=== PATIENT | female | born 1945 | race Hispanic/Latino ===

== ENCOUNTER 2020-02-04 00:50 | Inpatient (IN) | payer MEDICARE ==
[~2020-02-04] VITALS: Ht 144.8 cm; Wt 101.2 kg
[2020-02-04] VITALS (7 sets, daily range): BP systolic 125–154; BP diastolic 51–77
[2020-02-04] MEDS ORDERED: ONDANSETRON HCL INJ 2MG/ML 2ML 2 MG/ML VIAL IV STA (00:59)
--- OUTSIDE RECORDS SUMMARY | 2020-02-04 01:23 | XMS REPORT | Clinical Summary ---
Author Author [facility] Organization [facility] Address Unknown Phone Unavailable Care Team Providers Care Blackjack Dealer Name Role Phone Jarvis English MD PCP Allergies Comments Active Allergy Reactions Severity Noted Date Ibuprofen Itching High 04/18/2017 Penicillins Swelling High 04/18/2017 Hydrocodone-Acetaminophen Swelling High 03/31 Vein swelling Zonisamide Other (See High 04/18/2017 Comments) Medications End Date Status Medication Sig Dispensed Refills Start Date Active traMADol (ULTRAM) 50 mg TAKE 1 TABLET 0 tablet BY MOUTH 7 EVERY 6 HOURS NEEDED FOR PAIN DIRECTED BY DOCTOR Active pantoprazole (PROTONIX) Take 40 mg by 3 40 MG EC tablet mouth once 7 daily. Active oxybutynin XL Take 10 mg by 1 (DITROPAN-XL) 10 MG 24 hr mouth once 7 tablet daily. Active losartan (COZAAR) 50 MG Take 50 mg by 3 tablet mouth once 7 daily. Active metoprolol tartrate Take 25 mg by 3 (LOPRESSOR) 25 mg tablet mouth 2 (two) 7 times a day. Active levothyroxine (SYNTHROID, Take 25 mcg 3 LEVOXYL) 25 mcg tablet by mouth once 7 daily. Active isosorbide mononitrate TAKE 1 TABLET 1 01 (IMDUR) 30 MG 24 hr BY MOUTH ONCE 7 tablet A DAY (IN THE MORNING) FOR 90 DAYS Active furosemide (LASIX) 20 mg Take 20 mg by 3 03/31 tablet mouth once 7 daily. Active clopidogrel (PLAVIX) 75 Take 75 mg by 3 mg tablet mouth once 7 daily. Active DOCOSAHEXANOIC ACID/EPA Take by 0 (FISH OIL ORAL) mouth. Active CALCIUM ACETATE ORAL Take by 0 mouth. Active aspirin (ECOTRIN) 81 MG Take 81 mg by 0 enteric coated tablet mouth daily. Active rosuvastatin (CRESTOR) 20 Take 20 mg by 0 MG tablet mouth daily. Active Problems Not on file Family History Medical History Relation Name Comments Lung disease Father Heart disease Mother Heart failure Mother Kidney failure Sister Relation Name Status Comments Brother Alive Brother Alive Brother Alive Father Mother Sister Alive Social History Date Tobacco Use Types Packs/Day Years Used Never Smoker Smokeless Tobacco: Never Used Drinks/Week oz/Week Comments Alcohol Use No Sex Assigned at Date Recorded Not on file Industry Job Start Date Occupation Not on file Not on file Not on file Travel End Travel History Travel Start No recent travel history available. Last Filed Vital Signs Not on file Plan of Treatment Health Maintenance Due Date Last Done Comments COLONOSCOPY SCREENING 09/25/1993 SHINGLES VACCINES (#1) 09/25/1993 65+ PNEUMOCOCCAL VACCINE 09/25/2008 (1 of 2 - PCV13) INFLUENZA VACCINE 02/28/2020 Results Not on fileafter 02/03/2019 Insurance Type Payer Benefit Subscriber ID Effective Phone Address Plan / Dates Group HMO [employer] CIGNA xxxxxxxxxxx 2016-P [employer] [facility] AD[facility] Guarantor Name Account Relation to Date of Phone Ирина grimes Address Type Patient Marisela Klein Personal/F Self 1945 [id number] (Home) [place] [address] Advance Directives For more information, please contact: [phone] 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
--- OUTSIDE RECORDS SUMMARY | 2020-02-04 01:23 | XMS REPORT | Continuity of Care Document ---
Author Author [facility] Organization [facility] Address [address] [place] [address] Phone Unavailable Care Team Providers Care Certified Coding Specialist Name Role Phone Amador GOLDBERG, MichelleYeseniaRobina PCP Problems This patient has no known problems. Allergies, Adverse Reactions, Alerts Allergy Name Allergy Type Status Severity Reaction(s) Onset Date Inacti ve Date Treating Clinician Comments Source Ibuprofen Propensity to adverse reactions to drug Active Itching 2017-04-18 00:00:00 [place] [facility] Penicillins Propensity to adverse reactions to drug Active Swelling 2017-04-18 00:00:00 [place] [facility] Hydrocodone-Acetaminophen Propensity to adverse reactions to drug A ctive Swelling 2017-04-18 00:00:00 [place] Zonisamide Propensity to adverse reactions to drug Active Other (See Comments) 2017-04-18 00:00:00 Vein swelling [place] [facility] Family History Family Member Diagnosis Comments Start Date Stop Date Source Natural father Lung disease [place] [facility] Natural mother Heart disease [place] [facility] Natural mother Heart failure [place] [facility] Natural sister Kidney failure [place] Social History Social Habit Start Date Stop Date Quantity Comments Source Sex Assigned At Dheeraj cheung [place] Alcohol intake 2017-04-20 00:00:00 2017-04-20 00:00:00 Current non-drinker of alcohol (finding) [place] [facility] Smoking Status Start Date Stop Date Source Never smoker [place] roman Medications Ordered Medication Name Filled Medication Name Start Date Stop Da te Current Medication? Ordering Clinician Indication Dosage Frequency Signature (SIG) Comments Components Source DOCOSAHEXANOIC ACID/EPA (FISH OIL ORAL) 2017-04-18 10:11:31 Yes Take by mouth. [place] CALCIUM ACETATE ORAL 2017-04-18 10:11:31 Yes Take by mouth. [place] aspirin (ECOTRIN) 81 MG enteric coated tablet 2017-04-18 10:11:3 1 Yes 81mg QD Take 81 mg by mouth daily. [place]au Torres rosuvastatin (CRESTOR) 20 MG tablet 2017-04-18 10:11:31 Yes 20mg QD Take 20 mg by mouth daily. [place] pantoprazole (PROTONIX) 40 MG EC tablet 2017-04-10 00:00:00 Yes 40mg QD Take 40 mg by mouth once daily. [place] losartan (COZAAR) 50 MG tablet 2017-04-02 00:00:00 Yes 50mg QD Take 50 mg by mouth once daily. [place] roman metoprolol tartrate (LOPRESSOR) 25 mg tablet 2017-04-02 00:00:00 Yes 25mg Q.5D Take 25 mg by mouth 2 (two) times a day. [place] [facility] furosemide (LASIX) 20 mg tablet 2017-03-31 00:00:00 Yes 20mg QD Take 20 mg by mouth once daily. [place] roman isosorbide mononitrate (IMDUR) 30 MG 24 hr tablet 2017-03-19 00:00:00 Yes TAKE 1 TABLET BY MOUTH ONCE A DAY (IN THE MORNI NG) FOR 90 DAYS [place] Torres clopidogrel (PLAVIX) 75 mg tablet 2017-03-04 00:00:00 Yes 75mg QD Take 75 mg by mouth once daily. [place] andrade traMADol (ULTRAM) 50 mg tablet 2017-02-22 00:00:00 Yes TAKE 1 TABLET BY MOUTH EVERY 6 HOURS NEEDED FOR PAIN DIRECTED BY DOCTOR [place] levothyroxine (SYNTHROID, LEVOXYL) 25 mcg tablet 2017-01-31 00:00:00 Yes 25ug QD Take 25 mcg by mouth once daily. [place] oxybutynin XL (DITROPAN-XL) 10 MG 24 hr tablet 2017-01-10 00:00: 00 Yes 10mg QD Take 10 mg by mouth once daily. [place] Torres Procedures This patient has no known procedures. Plan of Care Planned Activity Planned Date Details Comments Source Future Scheduled Test 2020-02-28 00:00:00 INFLUENZA VACCINE [code = INFLUENZA VACCINE] [place] [facility] Future Scheduled Test 2008-09-25 00:00:00 65+ PNEUMOCOCCAL V ACCINE (1 of 2 - PCV13) [code = 65+ PNEUMOCOCCAL VACCINE (1 of 2 - PCV13)] [place] [facility] Future Scheduled Test 1993-09-25 00:00:00 COLONOSCOPY SCREEN ING [code = COLONOSCOPY SCREENING] [facility] Future Scheduled Test 1993-09-25 00:00:00 SHINGLES VACCINES (#1) [code = SHINGLES VACCINES (#1)] [facility] Encounters Start Date/Time End Date/Time [facility] Source 2019-03-02 22:28:00 2019-03-02 22:28:00 Emergency E [id number] [facility] Results This patient has no known results.
[2020-02-04 01:25] LABS: BASOPHILS # (AUTO) 0.1 (0.0-0.1); BASOPHILS % 0.5 % (0.0-1.0); EOSINOPHILS # (AUTO) 0.4 (0.0-0.4); EOSINOPHILS % 2.7 % (0.0-6.0); HEMATOCRIT 34.1 % (34.2-44.1); HEMOGLOBIN 10.9 g/dL (12.0-16.0); LYMPHOCYTES # (AUTO) 2.4 (1.0-3.2); LYMPHOCYTES % 18.4 % (18.0-39.1); MEAN CORPUSCULAR HEMOGLOBIN 26.8 pg (28-32); MONOCYTES # (AUTO) 1.2 (0.2-0.8); MONOCYTES % 9.2 % (4.4-11.3); NEUTROPHILS % 67.5 % (38.7-80.0); PLATELET COUNT 369 x10e3/uL (140-360); RED BLOOD COUNT 4.06 x10e6/uL (3.6-5.1); RED CELL DISTRIBUTION WIDTH 18.7 % (11.7-14.4)
--- NOTE | 2020-02-04 01:41 | Emergency Department Note ---
History of Present Illnes History of Present Illness Chief Complaint: General Medicine Complaints History of Present Illness This is a 74 year old female PRESENTS TO ED WITH NAUSEA X11 HRS, PT DENIES ANY VOMITING OR DIARRHEA; PT ALSO WITH MILD GENERALIZED ABD PAIN, PT ALSO REPORTS OUT OF HER TRAMADOL FOR 2 DAYS AND NOT DUE FOR A REFILL UNTIL 02/09/20. . Historian: Patient, Family Member Arrival Mode: Car Onset (how long ago): hour(s) (11) Location: ABD Quality: NAUSEA, ABD PAIN Radiation: Reports non-radiation Severity: moderate Onset quality: gradual Duration (how long): hour(s) (11) Timing of current episode: constant Progression: worsening Context: Denies recent illness, Denies recent surgery, Denies trauma/injury Relieving factors: none Exacerbating factors: none Associated symptoms: Reports headaches, Reports nausea/vomiting (NO VOMITING) Treatments prior to arrival: none Past Medical/Family History Physician Review I have reviewed the patient's past medical and family history. Any updates have been documented here. Past Medical History Recent Fever: No Clinical Suspicion of Infectio: No New/Unexplained Change in Ment: No Past Medical History: Hypertension, CHF, CVA, CAD, Liver Disease, Hyperlipedemia, Chronic Back Pain Past Surgical History: Cholecysctectomy, Hysterectomy, Tubal Ligation Social History Smoking Cessation: Never Smoker Counseling Performed: No Alcohol Use: None Any Illegal Drug Use: No Family History Family history of heart diseas: No Other Any Pre-Existing Lines (PICC,: No Review of Systems Review of Systems Constitutional: Reports no symptoms EENTM: Reports no symptoms Cardiovascular: Reports no symptoms Respiratory: Reports no symptoms Gastrointestinal: Reports as per HPI Genitourinary: Reports no symptoms Musculoskeletal: Reports no symptoms Integumentary: Reports no symptoms Neurological: Reports no symptoms Psychological: Reports no symptoms Endocrine: Reports no symptoms Hematological/Lymphatic: Reports no symptoms Physical Exam Related Data Allergies: Coded Allergies: Penicillins (Verified Allergy, Intermediate, 02/04/20) acetaminophen (Verified Allergy, Intermediate, 02/04/20) hydrocodone (Verified Allergy, Intermediate, 02/04/20) zonisamide (Verified Allergy, Intermediate, 02/04/20) Triage Vital Signs Vital Signs Date Time Temp Pulse Resp B/P (MAP) Pulse Ox O2 Delivery O2 Flow Rate FiO2 02/04/20 00:59 97.9 90 18 99 Room Air Vital signs reviewed: Yes Physical Exam CONSTITUTIONAL Constitutional: Present well-developed, Present well-nourished; Absent distressed HENT HENT: Present normocephalic, Present atraumatic, Present oropharynx clear/moist, Present nose normal HENT L/R: Present left ext ear normal, Present right ext ear normal EYES Eyes: Reports PERRL, Reports conjunctivae normal NECK Neck: Present ROM normal PULMONARY Pulmonary: Present effort normal, Present breath sounds normal CARDIOVASCULAR Cardiovascular: Present regular rhythm, Present heart sounds normal, Present capillary refill normal, Present normal rate GASTROINTESTINAL Abdominal: Present soft, Present bowel sounds normal, Present tender (MILD GENERALIZED TENDERNESS) GENITOURINARY Genitourinary: Present exam deferred SKIN Skin: Present warm, Present dry MUSCULOSKELETAL Musculoskeletal: Present ROM normal, Present edema (2+ PITTTING EDEMA TO BILATERAL LOWER EXTREMITIES) NEUROLOGICAL Neurological: Present alert, Present oriented x 3, Present no gross motor or sensory deficits PSYCHOLOGICAL Psychological: Present mood/affect normal, Present judgement normal Results Laboratory Result Diagram: 02/04/20 0111 Laboratory Laboratory Tests Test 02/04/20 02:05 02/04/20 01:11 Urine Color Yellow (YELLOW) Urine Clarity Cloudy (CLEAR) Urine pH 5 (5 - 7) Urine Specific [place] 1.015 (1.010-1.025) Urine Protein Negative (NEGATIVE) Urine Glucose (UA) Negative (NEGATIVE) Urine Ketones Negative (NEGATIVE) Urine Blood 1+ (NEGATIVE) Urine Nitrite Negative (NEGATIVE) Urine Bilirubin Negative (NEGATIVE) Urine Urobilinogen 0.2 mg/dL (0.2 - 1) Urine Leukocyte Esterase 2+ (NEGATIVE) Urine RBC 6-10 /HPF (0-5) Urine WBC >50 /HPF (0-5) Urine Epithelial Cells Few /LPF (NONE) Urine Transitional Epithelial Cells Few (NONE) Urine Renal Epithelial Cells Few (NONE) Urine Bacteria Moderate /HPF (NONE) White Blood Count 13.25 x10e3/uL (4.8-10.8) Red Blood Count 4.06 x10e6/uL (3.6-5.1) Hemoglobin 10.9 g/dL (12.0-16.0) Hematocrit 34.1 % (34.2-44.1) Mean Corpuscular Volume 84.0 fL (81-99) Mean Corpuscular Hemoglobin 26.8 pg (28-32) Mean Corpuscular Hemoglobin Concent 32.0 g/dL (31-35) Red Cell Distribution Width 18.7 % (11.7-14.4) Platelet Count 369 x10e3/uL (140-360) Neutrophils (%) (Auto) 67.5 % (38.7-80.0) Lymphocytes (%) (Auto) 18.4 % (18.0-39.1) Monocytes (%) (Auto) 9.2 % (4.4-11.3) Eosinophils (%) (Auto) 2.7 % (0.0-6.0) Basophils (%) (Auto) 0.5 % (0.0-1.0) Neutrophils # (Auto) 9.0 (2.1-6.9) Lymphocytes # (Auto) 2.4 (1.0-3.2) Monocytes # (Auto) 1.2 (0.2-0.8) Eosinophils # (Auto) 0.4 (0.0-0.4) Basophils # (Auto) 0.1 (0.0-0.1) Absolute Immature Granulocyte (auto 0.22 x10e3/uL (0-0.1) Sodium Level 137 mmol/L (136-145) Potassium Level 4.7 mmol/L (3.5-5.1) Chloride Level 102 mmol/L (98-107) Carbon Dioxide Level 19 mmol/L (22-29) Anion Gap 20.7 mmol/L (8-16) Blood Urea Nitrogen 47 mg/dL (7-26) Creatinine 1.71 mg/dL (0.57-1.11) Estimat Glomerular Filtration Rate 29 ML/MIN (60-) BUN/Creatinine Ratio 27 (6-25) Glucose Level 99 mg/dL (74-118) Calcium Level 9.3 mg/dL (8.4-10.2) Total Bilirubin 0.4 mg/dL (0.2-1.2) Aspartate Amino Transf (AST/SGOT) 41 IU/L (5-34) Alanine Aminotransferase (ALT/SGPT) 27 IU/L (0-55) Alkaline Phosphatase 112 IU/L (40-150) Creatine Kinase 1331 IU/L (29-168) Creatine Kinase MB 19.90 ng/mL (0-5.0) Troponin I 0.021 ng/mL (0-0.300) Total Protein 8.1 g/dL (6.5-8.1) Albumin 4.7 g/dL (3.5-5.0) Globulin 3.4 g/dL (2.3-3.5) Albumin/Globulin Ratio 1.4 (0.8-2.0) Laboratory Tests Test 02/04/20 01:11 White Blood Count 13.25 x10e3/uL (4.8-10.8) Red Blood Count 4.06 x10e6/uL (3.6-5.1) Hemoglobin 10.9 g/dL (12.0-16.0) Hematocrit 34.1 % (34.2-44.1) Mean Corpuscular Volume 84.0 fL (81-99) Mean Corpuscular Hemoglobin 26.8 pg (28-32) Mean Corpuscular Hemoglobin Concent 32.0 g/dL (31-35) Red Cell Distribution Width 18.7 % (11.7-14.4) Platelet Count 369 x10e3/uL (140-360) Neutrophils (%) (Auto) 67.5 % (38.7-80.0) Lymphocytes (%) (Auto) 18.4 % (18.0-39.1) Monocytes (%) (Auto) 9.2 % (4.4-11.3) Eosinophils (%) (Auto) 2.7 % (0.0-6.0) Basophils (%) (Auto) 0.5 % (0.0-1.0) Neutrophils # (Auto) 9.0 (2.1-6.9) Lymphocytes # (Auto) 2.4 (1.0-3.2) Monocytes # (Auto) 1.2 (0.2-0.8) Eosinophils # (Auto) 0.4 (0.0-0.4) Basophils # (Auto) 0.1 (0.0-0.1) Absolute Immature Granulocyte (auto 0.22 x10e3/uL (0-0.1) Lab results reviewed: Yes Imaging Imaging results reviewed: Yes Impressions EXAM: CT Abdomen and Pelvis WITHOUT contrast INDICATION: ^ABD PAIN, NAUSEA ^Y COMPARISON: None. TECHNIQUE: Abdomen and pelvis were scanned utilizing a multidetector helical scanner from the lung base to the pubic symphysis without administration of IV contrast. Absence of intravenous contrast decreases sensitivity for detection of focal lesions and vascular pathology. Coronal and sagittal reformations were obtained. Routine protocol was performed. IV CONTRAST: None ORAL CONTRAST: Gastroview COMPLICATIONS: None RADIATION DOSE: Total DLP: 769.47 mGy*cm Estimated effective dose: (DLP x 0.015 x size factor) mSv CTDIvol has been reviewed. It is below the limits set by the Radiation Protocol Committee (RPC). FINDINGS: LINES and TUBES: None. LOWER THORAX: Unremarkable HEPATOBILIARY: Ill-defined right hepatic lobe hypodensity (series 2, image 17) cannot be characterized on this unenhanced study. Hepatic steatosis. No biliary ductal dilation. GALLBLADDER: Surgically absent. SPLEEN: No splenomegaly. PANCREAS: No focal masses or ductal dilatation. ADRENALS: No adrenal nodules KIDNEYS/URETERS: Atrophic kidneys. No hydronephrosis. Limited for evaluation of renal parenchyma without intravenous contrast. 1.8 cm right renal midpole exophytic hyperdense lesion. No stones. GI TRACT: No abnormal distention, wall thickening, or evidence of bowel obstruction. Appendix is not visualized. PELVIC ORGANS/BLADDER: Fat-containing 2.5 cm anterior uterine body lesion, could represent a lipoleiomyoma. Bladder is unremarkable. LYMPH NODES: No lymphadenopathy. VESSELS: There is mild atherosclerotic disease in the aorta and major arterial branches. 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 PERITONEUM / RETROPERITONEUM: No free air or fluid. BONES: Degenerative changes of spine. Grade 1 retrolisthesis of L5 in relation to L4. SOFT TISSUES: Unremarkable. IMPRESSION: No definite evidence of acute inflammatory process in the abdomen/pelvis, considering limitations of unenhanced study. Hepatic steatosis. Atrophic kidneys. 1.8 cm right renal midpole exophytic hyperdense lesion, could represent a hemorrhagic cyst, which can be confirmed with nonurgent renal ultrasound. 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 Signed by: Dr. Steve Miller MD on 02/04/2020 4:41 AM Dictated By: STEVE MILLER MD 0 Transcribed By: GRADY on 02/04/20440 COPY TO: ASHLEY HAYES MD~ Procedures 12 Lead ECG Interpretation ECG Interpretation : ECG: ECG 1 Mica Inspector: Interpreted by ED physician Date: Feb 04, 2020 Time: 01:31 Rate: tachycardia QRS axis: normal ST segments normal: Yes T waves normal: Yes Q waves: V1, V2 Clinical Impression: abnormal ECG Additional Comments ACCELERATED JUNCTIONAL RHYTHM Assessment & Plan Medical Decision Making MDM PT WITH NAUSEA AND ABD PAIN WHO HAS BEEN OUT OF HER TRAMADOL FOR 2 DAYS CBC, CMP, AMYLASE, LIPASE, UA, EKG, CARDIAC ENZYMES, CT ABD/PELVIS ORDERED TO EVAL FOR PANCREATITIS, UTI, ELECTROLYTE ABNORMALITY, MYOCARDIAL INFARCTION, COLITIS, BOWEL OBSTRUCTION ZOFRAN 4 MG IV ORDERED 0235 PT'S DAUGHTER REPORTS SHE HAS HAD SAME SYMPTOMS THIS WITH OPIATE WITHDRAWALS SEVERAL TIMES IN THE PAST Assessment & Plan Final Impression: (1) UTI (urinary tract infection) (2) Nausea (3) Elevated CK (4) Elevated CK-MB level (5) Opiate withdrawal Depart Disposition: ADMITTED Last Vital Signs Date Time Temp Pulse Resp B/P (MAP) Pulse Ox O2 Delivery O2 Flow Rate FiO2 02/04/20 00:59 97.9 90 18 99 Room Air Medications in the ED Ondansetron HCl 4 mg NOW STAT IV ; Start 02/04/20 at 00:59; Stop 02/04/20 at 01:18; Status DC Lorazepam 1 mg ONCE ONCE IV ; Start 02/04/20 at 01:45; Stop 02/04/20 at 01:46 ASHLEY HAYES MD Feb 04, 2020 01:41
[2020-02-04] MEDS ORDERED: LORAZEPAM INJ 2 MG/ML VIAL ONE (01:42)
[2020-02-04] MEDS ORDERED: LORAZEPAM INJ 2 MG/ML VIAL IV ONE (01:45)
[2020-02-04 01:47] LABS: ALBUMIN 4.7 g/dL (3.5-5.0); ALBUMIN/GLOBULIN RATIO 1.4 (0.8-2.0); ANION GAP 20.7 mmol/L (8-16); CALCIUM 9.3 mg/dL (8.4-10.2); CREATININE, SERUM 1.71 mg/dL (0.57-1.11); POTASSIUM 4.7 mmol/L (3.5-5.1)
[2020-02-04 02:09] LABS: CREATINE KINASE MB 19.9 ng/mL (0-5.0)
[2020-02-04] MEDS ORDERED: MORPHINE SULFATE 2 MG/ML SYR 1ML IV STA (02:09)
[2020-02-04] MEDS ORDERED: DIATRIZOATE MEGL/DIATRIZOA SOD 30 ML BTL PO ONE (02:10)
[2020-02-04] MEDS ORDERED: MORPHINE SULFATE INJ 4 MG/ML INJ 1ML ONE (02:18)
[2020-02-04] MEDS ORDERED: ONDANSETRON HCL INJ 2MG/ML 2ML 2 MG/ML VIAL ONE (02:19)
[2020-02-04] MEDS ORDERED: SODIUM CHLORIDE 0.9% 50ML 50 ML ONE (02:21)
[2020-02-04 02:50] LABS: BILIRUBIN,URINE NEGATIVE (NEGATIVE); CLARITY,URINE CLOUDY (CLEAR); COLOR,URINE YELLOW (YELLOW); KETONES,URINE NEGATIVE (NEGATIVE); LEUKOCYTE ESTERASE ,URINE 2+ (NEGATIVE); NITRITE,URINE NEGATIVE (NEGATIVE); PROTEIN,URINE DIPSTICK NEGATIVE (NEGATIVE); URINE UROBILINOGEN 0.2 mg/dL (0.2 - 1)
[2020-02-04 02:55] LABS: BACTERIA,URINE MODERATE /HPF; EPITHELIAL CELLS,URINE FEW /LPF; RENAL EPITHELIAL CELLS,URINE FEW; TRANSITIONAL EPI CELLS,URINE FEW; WBC,URINE (MAN) >50 /HPF (0-5)
[2020-02-04] MEDS: CEFTRIAXONE SOD 1 GM/NS 50 ML 50 ML IV SCH (03:50)
--- NOTE | 2020-02-04 04:44 | Diagnostic Imaging Report ---
EXAM: CT Abdomen and Pelvis WITHOUT contrast INDICATION: ^ABD PAIN, NAUSEA ^Y COMPARISON: None. TECHNIQUE: Abdomen and pelvis were scanned utilizing a multidetector helical scanner from the lung base to the pubic symphysis without administration of IV contrast. Absence of intravenous contrast decreases sensitivity for detection of focal lesions and vascular pathology. Coronal and sagittal reformations were obtained. Routine protocol was performed. IV CONTRAST: None ORAL CONTRAST: Gastroview COMPLICATIONS: None RADIATION DOSE: Total DLP: 769.47 mGy*cm Estimated effective dose: (DLP x 0.015 x size factor) mSv CTDIvol has been reviewed. It is below the limits set by the Radiation Protocol Committee (RPC). FINDINGS: LINES and TUBES: None. LOWER THORAX: Unremarkable HEPATOBILIARY: Ill-defined right hepatic lobe hypodensity (series 2, image 17) cannot be characterized on this unenhanced study. Hepatic steatosis. No biliary ductal dilation. GALLBLADDER: Surgically absent. SPLEEN: No splenomegaly. PANCREAS: No focal masses or ductal dilatation. ADRENALS: No adrenal nodules KIDNEYS/URETERS: Atrophic kidneys. No hydronephrosis. Limited for evaluation of renal parenchyma without intravenous contrast. 1.8 cm right renal midpole exophytic hyperdense lesion. No stones. GI TRACT: No abnormal distention, wall thickening, or evidence of bowel obstruction. Appendix is not visualized. PELVIC ORGANS/BLADDER: Fat-containing 2.5 cm anterior uterine body lesion, could represent a lipoleiomyoma. Bladder is unremarkable. LYMPH NODES: No lymphadenopathy. VESSELS: There is mild atherosclerotic disease in the aorta and major arterial branches. 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 PERITONEUM / RETROPERITONEUM: No free air or fluid. BONES: Degenerative changes of spine. Grade 1 retrolisthesis of L5 in relation to L4. SOFT TISSUES: Unremarkable. IMPRESSION: No definite evidence of acute inflammatory process in the abdomen/pelvis, considering limitations of unenhanced study. Hepatic steatosis. Atrophic kidneys. 1.8 cm right renal midpole exophytic hyperdense lesion, could represent a hemorrhagic cyst, which can be confirmed with nonurgent renal ultrasound. 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 Signed by: Dr. Steve Miller MD on 02/04/2020 4:41 AM
[2020-02-04] MEDS ORDERED: SODIUM CHLORIDE 0.9% 1000ML 1,000 ML IV ONE (05:30)
[2020-02-04] MEDS ORDERED: DEXTROSE 50% SYRINGE 50 ML IV PRN (05:30)
--- OUTSIDE RECORDS SUMMARY | 2020-02-04 05:41 | XMS REPORT | Clinical Summary ---
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
--- OUTSIDE RECORDS SUMMARY | 2020-02-04 05:41 | XMS REPORT | Continuity of Care Document ---
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 [...] disease [place] Torres Natural mother Heart failure Lod[place] Torres Natural sister Kidney failure [place] [facility] Social History Social Habit Start Date Stop Date Quantity Comments Source Sex Assigned At [facility] Alcohol intake 2017-04-20 00:00:00 2017-04-20 00:00:00 Current [...] PNEUMOCOCCAL VACCINE (1 of 2 - PCV13)] [place] [facility] Future Scheduled Test 1993-09-25 00:00:00 COLONOSCOPY SCREEN ING [code = COLONOSCOPY SCREENING] [place] [facility] Future Scheduled Test 1993-09-25 00:00:00 SHINGLES VACCINES (#1) [code = SHINGLES VACCINES (#1)] [place] [facility] Encounters Start Date/Time End Date/Time Encounter Type Admission Type Att[facility] Care Department Encounter ID Source 2019-03-02 22:28:00 2019-03-02 22:28:00 Emergency E [id number] [facility] Results Test Description Test Time Test Comments Results Result Comments Source CT ABDOMEN/PELVIS WO 2020-02-04 04:32:00 [place] [id number] Patient Name: ARNULFO FOSS MR #: [id number] : 1945 Age/Sex: 74/F Req #: [id number] Adm Physician: Ordered by: ASHLEY HAYES MD Report #: [id number] Location: ER Room/Bed: Procedure: [id number] CT/CT ABDOMEN/PELVIS WO Exam Date: Exam Time: REPORT STATUS: Signed EXAM: CT Abdomen and Pelvis WITHOUT contrast INDICATION: ABD PAIN, NAUSEA Y COMPARISON: None. TECHNIQUE: Abdomen and pelvis were scanned utilizing a multidetector helical scanner from the lung base to the pubic symphysis without administration of IV contrast. Absence of intravenous contrast decreases sensitivity for detection of focal lesions and vascular pathology. Coronal and sagittal reformations were obtained. Routine protocol was performed. IV CONTRAST: None ORAL CONTRAST: Gastroview COMPLICATIONS: None RADIATION DOSE: Total DLP: 769.47 mGy*cm Estimated effective dose: (DLP x 0.015 x size factor) mSv CTDIvol has been reviewed. It is below the limits set by the Radiation Protocol Committee (RPC). FINDINGS: LINES and TUBES: None. LOWER THORAX: Unremarkable HEPATOBILIARY: Ill-defined right hepatic lobe hypodensity (series 2, image 17) cannot be characterized on this unenhanced study. Hepatic steatosis. No biliary ductal dilation. GALLBLADDER: Surgically absent. SPLEEN: No splenomegaly. PANCREAS: No focal masses or ductal dilatation. ADRENALS: No adrenal nodules KIDNEYS/URETERS: Atrophic kidneys. No hydronephrosis. Limited for evaluation of renal parenchyma without intravenous contrast. 1.8 cm right renal midpole exophytic hyperdense lesion. No stones. GI TRACT: No abnormal distention, wall thickening, or evidence of bowel obstruction. Appendix is not visualized. PELVIC ORGANS/BLADDER: Fat-containing 2.5 cm anterior uterine body lesion, could represent a lipoleiomyoma. Bladder is unremarkable. LYMPH NODES: No lymphadenopathy. VESSELS: There is mild atherosclerotic disease in the aorta and major arterial branches. 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 PERITONEUM / RETROPERITONEUM: No free air or fluid. BONES: Degenerative changes of spine. Grade 1 retrolisthesis of L5 in relation to L4. SOFT TISSUES: Unremarkable. IMPRESSION: No definite rosalia dence of acute inflammatory process in the abdomen/pelvis, considering limitations of unenhanced study. Hepatic steatosis. Atrophic kidneys. 1.8 cm right renal midpole exophytic hyperdense lesion, could represent a hemorrhagic cyst, which can be confirmed with nonurgent renal ultrasound. 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 Signed by: Dr. Steve Degroot MD on 02/04/2020 4:41 AM Dictated By: STEVE DEGROOT MD 0 Transcribed By: GRADY on 02/04/20440 COPY TO: ASHLEY HAYES MD
[2020-02-04] MEDS ORDERED: HYDRALAZINE HCL 20 MG/ML VIAL IV PRN (06:15)
[2020-02-04] MEDS: INSULIN REGULAR, HUMAN 100 UNIT/1 ML 3ML VIAL SQ SCH ×4 (07:30→21:00)
[2020-02-04] MEDS: MORPHINE SULFATE INJ 4 MG/ML INJ 1ML IV PRN ×2 (10:30→20:40)
--- NOTE | 2020-02-04 10:51 | NUR ---
H&P cc: muscle pain HPI: 74yoF, PCP ?, developed muscle pain/cramps, found to have acute rhabdomyolysis. Pt is a poor historian. Denies N/V/D. PMH: obesity, HTN, hypothyroidism, osteoporosis, urinary incontinence PSHx: unknown Allergies; see emr FH/SH; ; meds; see MAR ROS: unreliable v/s; revd PE tired appearing anicteric ns1s2 mod bs soft nt nd ext mild tenderness of muscles skin dry flat affect a&ox2 labs/meds revd A/P: 74yoF VINOD- IVF Acute rhabdomyolysis- IVF UTI- IV ceftraixone CKD stage? atrophic kidneys on imaging Lipoleiomyoma Severe obesity- screen for DM; check lipids BMI 48 Hypothyroidism- resume replacement Prop: scd Dipso; ALFRED BORJA MD PHD.
[2020-02-04] MEDS ORDERED: DOCUSATE SODIUM 100 MG CAP PO PRN (11:00)
[2020-02-04 11:10] LABS: CREATINE KINASE MB 24.1 ng/mL (0-5.0)
[2020-02-04 11:25] LABS: CHOL/HDL RATIO 2.3 (3.0-3.6)
[2020-02-04] MEDS ORDERED: LASIX20 MG PO (11:41)
[2020-02-04] MEDS ORDERED: ALENDRONATE SOD35 MG PO (11:41)
[2020-02-04] MEDS ORDERED: LEVOTHYROXINE25 MCG PO (11:41)
[2020-02-04] MEDS ORDERED: ISOSORBIDE MONO30 MG PO (11:41)
[2020-02-04] MEDS ORDERED: FISH OIL 1,2001 EAC1 PO (11:41)
[2020-02-04] MEDS ORDERED: ASPIRIN81 MG PO (11:41)
[2020-02-04] MEDS ORDERED: OXYBUTYNIN CHLOR5 M1 PO (11:41)
[2020-02-04] MEDS ORDERED: PANTOPRAZOLE SO40 MG PO (12:58)
[2020-02-04] MEDS ORDERED: ADVAIR 500/501 EA INH (12:58)
[2020-02-04] MEDS ORDERED: LOSARTAN POTASS25 MG PO (12:58)
[2020-02-04] MEDS ORDERED: FERROUS SULFAT325 MG PO (12:58)
[2020-02-04] MEDS ORDERED: ULTRAM 50MG50 MG PO (12:58)
[2020-02-04] MEDS ORDERED: CRESTOR10 MG PO (12:58)
[2020-02-04] MEDS ORDERED: CLOPIDOGREL75 MG PO (12:58)
[2020-02-04] MEDS: SODIUM CHLORIDE 0.9% 1000ML 1,000 ML IV SCH ×2 (13:17→23:04)
[2020-02-04 19:42] LABS: CREATINE KINASE MB 20.1 ng/mL (0-5.0)
--- NOTE | 2020-02-04 20:10 | NUR ---
Assisted to use rest room.voided.back to bed safely.bed alarm on .call light within reach.keep monitor the patient.
[2020-02-04] MEDS: ONDANSETRON HCL INJ 2MG/ML 2ML 2 MG/ML VIAL IV PRN (20:32)
[2020-02-05] VITALS (8 sets, daily range): BP systolic 110–138; BP diastolic 36–64
[2020-02-05] MEDS: ONDANSETRON HCL INJ 2MG/ML 2ML 2 MG/ML VIAL IV PRN ×3 (03:00→18:12)
[2020-02-05] MEDS: MORPHINE SULFATE INJ 4 MG/ML INJ 1ML IV PRN ×3 (03:02→18:12)
[2020-02-05] MEDS: CEFTRIAXONE SOD 1 GM/NS 50 ML 50 ML IV SCH (03:12)
[2020-02-05] MEDS: SODIUM CHLORIDE 0.9% 1000ML 1,000 ML IV SCH ×3 (04:15→23:23)
[2020-02-05 05:20] LABS: BASOPHILS # (AUTO) 0.1 (0.0-0.1); BASOPHILS % 0.6 % (0.0-1.0); EOSINOPHILS # (AUTO) 0.3 (0.0-0.4); EOSINOPHILS % 3.9 % (0.0-6.0); HEMATOCRIT 35.8 % (34.2-44.1); HEMOGLOBIN 10.4 g/dL (12.0-16.0); LYMPHOCYTES # (AUTO) 2.1 (1.0-3.2); LYMPHOCYTES % 25.5 % (18.0-39.1); MEAN CORPUSCULAR HEMOGLOBIN 26.8 pg (28-32); MEAN CORPUSCULAR HGB CONC 29.1 g/dL (31-35); MEAN CORPUSCULAR VOLUME 92.3 fL (81-99); MONOCYTES # (AUTO) 1.1 (0.2-0.8); MONOCYTES % 13.2 % (4.4-11.3); NEUTROPHILS # (AUTO) 4.7 (2.1-6.9); NEUTROPHILS % 55.6 % (38.7-80.0); PLATELET COUNT 255 x10e3/uL (140-360); RED BLOOD COUNT 3.88 x10e6/uL (3.6-5.1); RED CELL DISTRIBUTION WIDTH 20.1 % (11.7-14.4)
[2020-02-05] MEDS: LEVOTHYROXINE SODIUM 25 MCG TABLET PO SCH (06:32)
--- NOTE | 2020-02-05 06:56 | NUR ---
Bed side shift report given to oncoming RN.stable condition.
[2020-02-05] MEDS: INSULIN REGULAR, HUMAN 100 UNIT/1 ML 3ML VIAL SQ SCH ×5 (07:30→20:23)
[2020-02-05 07:50] LABS: ALBUMIN 3.6 g/dL (3.5-5.0); ALBUMIN/GLOBULIN RATIO 1.4 (0.8-2.0); ANION GAP 17.6 mmol/L (8-16); CREATININE, SERUM 1.2 mg/dL (0.57-1.11); POTASSIUM 4.6 mmol/L (3.5-5.1)
--- NOTE | 2020-02-05 09:23 | NUR ---
IM- progress O/N see below ROS: unreliable v/s; revd PE tired appearing anicteric ns1s2 mod bs soft nt nd ext mild tenderness of muscles skin dry flat affect a&ox2 labs/meds revd A/P: 74yoF VINOD- IVF Acute rhabdomyolysis- IVF UTI- IV ceftraixone CKD stage? atrophic kidneys on imaging Lipoleiomyoma Severe obesity- screen for DM; check lipids BMI 48 Hypothyroidism- resume replacement Prop: scd Dipso; 02-05-20 renal fn improving; CPK improving; cont care; ALFRED BORJA MD PHD.
[2020-02-06] VITALS (7 sets, daily range): BP systolic 114–172; BP diastolic 47–60
[2020-02-06] MEDS: ONDANSETRON HCL INJ 2MG/ML 2ML 2 MG/ML VIAL IV PRN ×4 (00:06→20:50)
[2020-02-06] MEDS: MORPHINE SULFATE INJ 4 MG/ML INJ 1ML IV PRN ×4 (00:07→20:50)
[2020-02-06] MEDS: CEFTRIAXONE SOD 1 GM/NS 50 ML 50 ML IV SCH (03:45)
[2020-02-06] MEDS: SODIUM CHLORIDE 0.9% 1000ML 1,000 ML IV SCH ×3 (04:15→16:41)
[2020-02-06] MEDS: LEVOTHYROXINE SODIUM 25 MCG TABLET PO SCH (05:15)
--- NOTE | 2020-02-06 06:38 | NUR ---
IM- progress O/N see below ROS: unreliable v/s; revd PE tired appearing anicteric ns1s2 mod bs soft nt nd ext mild tenderness of muscles skin dry flat affect a&ox2 labs/meds revd A/P: 74yoF VINOD- IVF Acute rhabdomyolysis- IVF UTI- IV ceftraixone CKD stage? atrophic kidneys on imaging Lipoleiomyoma Severe obesity- screen for DM; check lipids BMI 48 Hypothyroidism- resume replacement Prop: scd Dipso; 02-04- renal fn improving; CPK improving; cont care; 9-9 check labs; ALFRED BORJA MD PHD.
--- NOTE | 2020-02-06 07:19 | NUR ---
BED SIDE SHIFT REPORT GIVEN TO ONCOMING RN.STABLE CONDITION.
[2020-02-06] MEDS: INSULIN REGULAR, HUMAN 100 UNIT/1 ML 3ML VIAL SQ SCH ×4 (07:30→20:47)
[2020-02-06 08:47] LABS: ANION GAP 17.8 mmol/L (8-16); CALCIUM 8.1 mg/dL (8.4-10.2); CREATININE, SERUM 1.03 mg/dL (0.57-1.11); POTASSIUM 4.8 mmol/L (3.5-5.1)
[2020-02-06 09:07] LABS: BASOPHILS % 0.5 % (0.0-1.0); EOSINOPHILS # (AUTO) 0.4 (0.0-0.4); EOSINOPHILS % 4.9 % (0.0-6.0); HEMATOCRIT 31.7 % (34.2-44.1); HEMOGLOBIN 9.6 g/dL (12.0-16.0); LYMPHOCYTES # (AUTO) 1.9 (1.0-3.2); MEAN CORPUSCULAR HEMOGLOBIN 26.7 pg (28-32); MEAN CORPUSCULAR HGB CONC 30.3 g/dL (31-35); MEAN CORPUSCULAR VOLUME 88.3 fL (81-99); MONOCYTES # (AUTO) 0.6 (0.2-0.8); MONOCYTES % 8.2 % (4.4-11.3); NEUTROPHILS # (AUTO) 4.4 (2.1-6.9); NEUTROPHILS % 59.6 % (38.7-80.0); PLATELET COUNT 290 x10e3/uL (140-360); RED BLOOD COUNT 3.59 x10e6/uL (3.6-5.1); RED CELL DISTRIBUTION WIDTH 19.7 % (11.7-14.4)
--- NOTE | 2020-02-06 19:59 | NUR ---
PATIENT ARRIVED TO THE FLOOR ESCORTED BY STEFANI ANN, VIA GURNEY, AMBULATORY, AOX3, NO DISTRESS NOTED, ORIENTED TO STAFF, ADMISSION COMPLETED, HOME MEDICATION UPDATED, ALL CONSULTS CALLED AND CONFIRMED ORDERED, MD ANSARI NOTIFIED VIA TELEPHONE, AWAITING CALL BACK, CALL LIGHT WITHIN REACH, VSS, AFEBRILE Addendum: 02/06/20 at 2229 by GURMEET HUI RN WRONG ENTRY
[2020-02-06] MEDS: ZOLPIDEM TARTRATE 5 MG TAB PO PRN (20:48)
--- NOTE | 2020-02-06 22:29 | NUR ---
MD BORJA CONTACT TO VERIFY ORDER FOR IV HYDRATION, DAYSHIFT RN NOTIFIED ME DURING SHIFT CHANGE THAT IV FLUIDS WERE HELD BY HER, BUT MD NOT NOTIFIED, PATIENT WAS EXPERIENCING S/SX OF FLUID OVERLOAD, LUNG SOUND DURING REPORTED TO ME "ABNORMAL, RALES HEARD, BUT BETTER ONCE FLUID HELD"
[2020-02-07] VITALS (10 sets, daily range): BP systolic 128–152; BP diastolic 49–67
[2020-02-07] MEDS: SODIUM CHLORIDE 0.9% 1000ML 1,000 ML IV SCH ×2 (00:38→15:15)
--- NOTE | 2020-02-07 00:40 | NUR ---
PER MD BORJA FLUID HYDRATION DECREASED TO 75CC/HR
[2020-02-07] MEDS: CEFTRIAXONE SOD 1 GM/NS 50 ML 50 ML IV SCH (02:42)
[2020-02-07] MEDS: ONDANSETRON HCL INJ 2MG/ML 2ML 2 MG/ML VIAL IV PRN ×3 (02:44→20:48)
[2020-02-07] MEDS: MORPHINE SULFATE INJ 4 MG/ML INJ 1ML IV PRN ×3 (02:44→20:48)
[2020-02-07] MEDS: LEVOTHYROXINE SODIUM 25 MCG TABLET PO SCH (05:28)
--- NOTE | 2020-02-07 06:33 | NUR ---
IM- progress O/N see below ROS: unreliable v/s; revd PE tired appearing anicteric ns1s2 mod bs soft nt nd ext mild tenderness of muscles skin dry flat affect a&ox2 labs/meds revd A/P: 74yoF VINOD- IVF Acute rhabdomyolysis- IVF UTI- IV ceftraixone CKD stage? atrophic kidneys on imaging Lipoleiomyoma Severe obesity- screen for DM; check lipids BMI 48 Hypothyroidism- resume replacement Prop: scd Dipso; 02-05-20 renal fn improving; CPK improving; cont care; 9-9 check labs; - poor access- get midline; cont fluids; no resp distress; d/c planning; HH/PT at home ALFRED BORJA MD PHD.
--- NOTE | 2020-02-07 06:34 | NUR ---
patient IV access site infiltration suspected, site red swollen and leaking, IV fluids stopped, attempted to place new IV X 6-7 times with 2 nurses, unable to start IV, MD Regan contacted, order for start Midline for IV hydration ordered stat
--- NOTE | 2020-02-07 06:58 | NUR ---
report given to ahmet RN, patient stable, call light within reach, update with plan of care, no am labs, patient pending Midline insertion,consent signed, radiology made aware
[2020-02-07] MEDS: INSULIN REGULAR, HUMAN 100 UNIT/1 ML 3ML VIAL SQ SCH ×4 (07:30→19:33)
--- NOTE | 2020-02-07 10:41 | NUR ---
Received order for home health. CM spoke to pt at bedside. Pt stated she currently has outpatient physical therapy with [facility] ([phone] / F [phone]) and wants to continue with that. Declined home health at this time. Message left for Dr. Reagn informing him.
--- NOTE | 2020-02-07 10:44 | NUR ---
IMM letter delivered and explained to pt. She verbalized understanding. Copy given to pt. Signed copy placed in chart.
[2020-02-07] MEDS: ZOLPIDEM TARTRATE 5 MG TAB PO PRN (20:58)
[2020-02-08] VITALS (12 sets, daily range): BP systolic 113–151; BP diastolic 45–72
[2020-02-08] MEDS: SODIUM CHLORIDE 0.9% 1000ML 1,000 ML IV SCH ×2 (03:42→16:55)
[2020-02-08] MEDS: CEFTRIAXONE SOD 1 GM/NS 50 ML 50 ML IV SCH (03:42)
[2020-02-08] MEDS: ONDANSETRON HCL INJ 2MG/ML 2ML 2 MG/ML VIAL IV PRN (03:55)
[2020-02-08] MEDS: MORPHINE SULFATE INJ 4 MG/ML INJ 1ML IV PRN ×2 (03:56→22:22)
--- NOTE | 2020-02-08 05:30 | NUR ---
IM- progress O/N see below ROS: unreliable v/s; revd PE tired appearing anicteric ns1s2 mod bs soft nt nd ext mild tenderness of muscles skin dry flat affect a&ox2 labs/meds revd A/P: 74yoF VINOD- IVF Acute rhabdomyolysis- IVF UTI- IV ceftraixone CKD stage? atrophic kidneys on imaging Lipoleiomyoma Severe obesity- screen for DM; check lipids BMI 48 Hypothyroidism- resume replacement Prop: scd Dipso; 02-05-20 renal fn improving; CPK improving; cont care; - check labs; 02-06 poor access- get midline; cont fluids; no resp distress; d/c planning; HH/PT at home - f/u labs; Treat constipation; ALFRED BORJA MD PHD.
[2020-02-08] MEDS ORDERED: SENNOSIDES 8.6 MG TAB PO SCH ×2 (06:00→08:00)
[2020-02-08] MEDS ORDERED: DOCUSATE SODIUM 100 MG CAP PO SCH ×2 (06:00→08:00)
--- NOTE | 2020-02-08 06:01 | NUR ---
MD BORJA ROUNDING ON PATIENT, PATIENT C/O CONSTIPATION, MD BORJA ORDERED SENNA PO ONE TABLET QD; COLACE PO DAILY; AND PATIENT TO RECEIVE WARM SOAP SUDS ENEMA TODAY x 1 & prn IF NEEDED FOR CONSTIPATION
[2020-02-08] MEDS: LEVOTHYROXINE SODIUM 25 MCG TABLET PO SCH (06:04)
[2020-02-08] MEDS: INSULIN REGULAR, HUMAN 100 UNIT/1 ML 3ML VIAL SQ SCH ×4 (07:30→20:16)
[2020-02-08 09:33] LABS: ANION GAP 16.3 mmol/L (8-16); BLOOD UREA NITROGEN 16 mg/dL (7-26); BUN/CREATININE RATIO 18 (6-25); CALCIUM 7.9 mg/dL (8.4-10.2); CARBON DIOXIDE 19 mmol/L (22-29); CHLORIDE 109 mmol/L (98-107); CREATININE, SERUM 0.87 mg/dL (0.57-1.11); EST GLOMERULAR FILTRATION RATE > 60 ML/MIN (60-); GLUCOSE 91 mg/dL (74-118); POTASSIUM 4.3 mmol/L (3.5-5.1); SODIUM 140 mmol/L (136-145)
[2020-02-08] MEDS ORDERED: ONDANSETRON HCL 4 MG ORAL DISINTEGRATING TAB PO PRN (12:00)
[2020-02-08] MEDS ORDERED: SOD PHOSPHATE/SOD BIPHOSPHATE ENEMA 132 ML BTL PR ONE (15:30)
--- NOTE | 2020-02-08 19:00 | NUR ---
RECEIVED BEDSIDE SHIFT REPORT FROM PREVIOUS NURSE. CALL LIGHT WITHIN REACH. PATIENT SITTING AT THE CORNER AT THE BED.
[2020-02-08] MEDS: ZOLPIDEM TARTRATE 5 MG TAB PO PRN (21:21)
[2020-02-09 00:32] VITALS: BP 147/67
[2020-02-09] MEDS: CEFTRIAXONE SOD 1 GM/NS 50 ML 50 ML IV SCH (02:54)
[2020-02-09] MEDS: MORPHINE SULFATE INJ 4 MG/ML INJ 1ML IV PRN (02:55)
[2020-02-09] MEDS: LEVOTHYROXINE SODIUM 25 MCG TABLET PO SCH (05:29)
[2020-02-09 05:32] VITALS: BP 149/58
[2020-02-09] MEDS ORDERED: SENOKOT8.6 MG PO (06:21)
[2020-02-09] MEDS ORDERED: COLACE100 MG PO ×2 (06:21)
[2020-02-09] MEDS ORDERED: Ondansetron Oral Disintegratin PO (06:21)
--- NOTE | 2020-02-09 06:23 | NUR ---
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
--- NOTE | 2020-02-09 07:17 | NUR ---
GAVE BEDSIDE SHIFT REPORT TO ONCOMING NURSE. CALL LIGHT WITHIN REACH. PATIENT IN BED. HOURLY ROUNDING PERFORMED.
[2020-02-09] MEDS: INSULIN REGULAR, HUMAN 100 UNIT/1 ML 3ML VIAL SQ SCH (07:30)
[2020-02-09 08:00] VITALS: BP 149/60
[2020-02-09 08:34] VITALS: BP 149/58
--- NOTE | 2020-02-09 09:20 | NUR ---
Discharge instructions and prescriptions were given to the patient, she verbalized understanding. Right midline was removed with tip intact.
== END 2020-02-09 11:42 | disposition home or self-care (01) | DRG 683 ==
LOC: ER 00:57 → ERHOLD 05:39 → MED/SURG2 07:32 → OBSVTOIN 02-05 14:39
PROVIDERS: ADMIT Internal Medicine; ATTEND Internal Medicine
PROC: 05HY33Z Insertion of Infusion Device into Upper Vein, Percutaneous Approach (ICD-10-PCS; principal; 2020-02-07)
DX: N17.9 Acute kidney failure, unspecified (principal); M62.82 Rhabdomyolysis; N39.0 Urinary tract infection, site not specified; Z68.42 Body mass index [BMI] 45.0-49.9, adult; E66.01 Morbid (severe) obesity due to excess calories; I10 Essential (primary) hypertension; E03.9 Hypothyroidism, unspecified; M81.0 Age-related osteoporosis without current pathological fracture; I12.9 Hypertensive chronic kidney disease with stage 1 through stage 4 chronic kidney disease, or unspecified chronic kidney disease; N18.2 Chronic kidney disease, stage 2 (mild); K59.00 Constipation, unspecified; Z11.59 Encounter for screening for other viral diseases
CPT/HCPCS: 36415; 36568; 74176; 80048; 80053; 80061; 81001; 82550; 82553; 82948; 83036; 84484; 85025; 87040; 87086; 93005; 97139; 99251; 99285; G0378; J0696; J2060; J2270; J2405; J7030; Q0162; U0002

== ENCOUNTER 2020-07-26 13:41 | Emergency (ER) | payer MEDICARE ==
[~2020-07-26] VITALS: Ht 142.2 cm; Wt 101.2 kg
[~2020-07-26 13:41] MED LIST: ADVAIR 500/501 EA INH; ALENDRONATE SOD35 MG PO; ASPIRIN81 MG PO; CLOPIDOGREL75 MG PO; COLACE100 MG PO; CRESTOR10 MG PO; FERROUS SULFAT325 MG PO; FISH OIL 1,2001 EAC1 PO; ISOSORBIDE MONO30 MG PO; LASIX20 MG PO; LEVOTHYROXINE25 MCG PO; LOSARTAN POTASS25 MG PO; OXYBUTYNIN CHLOR5 M1 PO; Ondansetron Oral Disintegratin PO; PANTOPRAZOLE SO40 MG PO; SENOKOT8.6 MG PO; ULTRAM 50MG50 MG PO
[2020-07-26] MEDS ORDERED: PREDNISONE 20 MG TAB PO ONE (14:45)
[2020-07-26 14:49] LABS: BASOPHILS % 0.4 % (0.0-1.0); EOSINOPHILS # (AUTO) 0.3 (0.0-0.4); HEMATOCRIT 33.2 % (34.2-44.1); HEMOGLOBIN 10.3 g/dL (12.0-16.0); LYMPHOCYTES # (AUTO) 2.4 (1.0-3.2); LYMPHOCYTES % 24.8 % (18.0-39.1); MEAN CORPUSCULAR HEMOGLOBIN 29.1 pg (28-32); MEAN CORPUSCULAR VOLUME 93.8 fL (81-99); MONOCYTES # (AUTO) 1.3 (0.2-0.8); MONOCYTES % 13.2 % (4.4-11.3); NEUTROPHILS # (AUTO) 5.4 (2.1-6.9); NEUTROPHILS % 57.2 % (38.7-80.0); PLATELET COUNT 278 x10e3/uL (140-360); RED BLOOD COUNT 3.54 x10e6/uL (3.6-5.1); RED CELL DISTRIBUTION WIDTH 14.7 % (11.7-14.4)
[2020-07-26] MEDS ORDERED: ALBUTEROL/IPRATROPIUM 3 ML NEB ONE (14:58)
[2020-07-26] MEDS ORDERED: ALBUTEROL/IPRATROPIUM 3 ML NEB NEB ONE ×2 (15:00→17:00)
[2020-07-26 15:11] LABS: ALANINE AMINOTRANSFERASE 13 IU/L (0-55); ALBUMIN 2.8 g/dL (3.5-5.0); ALBUMIN/GLOBULIN RATIO 0.8 (0.8-2.0); ALKALINE PHOSPHATASE 83 IU/L (40-150); ANION GAP 12.2 mmol/L (8-16); BLOOD UREA NITROGEN 12 mg/dL (7-26); BUN/CREATININE RATIO 15 (6-25); CALCIUM 8.5 mg/dL (8.4-10.2); CARBON DIOXIDE 27 mmol/L (22-29); CHLORIDE 104 mmol/L (98-107); CREATINE KINASE 126 IU/L (29-168); CREATININE, SERUM 0.82 mg/dL (0.57-1.11); EST GLOMERULAR FILTRATION RATE > 60 ML/MIN (60-); GLUCOSE 92 mg/dL (74-118); POTASSIUM 4.2 mmol/L (3.5-5.1); SODIUM 139 mmol/L (136-145)
== END 2020-07-26 17:29 | disposition home or self-care (01) ==
LOC: ER 14:43
DX: U07.1 COVID-19 (principal); R06.02 Shortness of breath; J45.909 Unspecified asthma, uncomplicated; R94.31 Abnormal electrocardiogram [ECG] [EKG]; E11.9 Type 2 diabetes mellitus without complications; E78.5 Hyperlipidemia, unspecified; K21.9 Gastro-esophageal reflux disease without esophagitis; E66.01 Morbid (severe) obesity due to excess calories; M54.9 Dorsalgia, unspecified; G89.29 Other chronic pain
CPT/HCPCS: 36415; 71045; 80053; 82550; 82553; 84484; 85025; 93005; 99284; J7512